=== PATIENT | male | born 1930 | race Caucasian/White ===

== ENCOUNTER 2016-12-26 10:36 | Emergency (ER) | payer MEDICARE ==
[~2016-12-26] VITALS: Ht 177.8 cm; Wt 100.0 kg
[~2016-12-26 10:36] MED LIST: AMLO5TAB96 PO; CLIN1CAP6 PO; COUM3TAB PO; NITR.4 SL; PREV15CA20 PO
[2016-12-26 10:37] VITALS: BP 135/63; PULSE 70; RESP 16; TEMP 97.5; O2SAT 99
[2016-12-26] MEDS ORDERED: MULTTAB67 PO (10:54)
[2016-12-26] MEDS ORDERED: SIMV20TA PO (10:54)
[2016-12-26] MEDS ORDERED: ACETAMINOPHEN/HYDROcodone 325 MG/5 MG TAB PO ONE (11:15)
[2016-12-26 11:45] LABS: AUTOMATED NEUTROPHIL # 0.5 TH/MM3 (1.8-7.7); BASOPHIL % 0.6 % (0.0-2.0); EOSINOPHIL % 2.3 % (0.0-4.0); HEMATOCRIT 27.4 % (39.0-51.0); LYMPH % 45.1 % (9.0-44.0); LYMPHOCYTE # 0.5 TH/MM3 (1.0-4.8); MEAN CORPUSCULAR HEMOGLOBIN 35.9 PG (27.0-34.0); MEAN CORPUSCULAR HGB CONC 33.9 % (32.0-36.0); MONO % 1.6 % (0.0-8.0); NEUT % 50.4 % (16.0-70.0); PLATELET COUNT 29 TH/MM3 (150-450); RED BLOOD COUNT 2.58 MIL/MM3 (4.50-5.90); RED CELL DISTRIBUTION WIDTH 20.1 % (11.6-17.2)
[2016-12-26 11:48] LABS: HEMO FLAGS AUTO DIFF
[2016-12-26 12:00] VITALS: BP 129/58; PULSE 68; RESP 16; O2SAT 98
[2016-12-26 12:00] LABS: ALT (GPT) 16 U/L (12-78); ANION GAP 6 MEQ/L (5-15); AST (GOT) 11 U/L (15-37); BICARBONATE 27.4 MEQ/L (21.0-32.0); BLOOD UREA NITROGEN 13 MG/DL (7-18); CHLORIDE 110 MEQ/L (98-107); GLOMERULAR FILTRATION RATE 58 ML/MIN (>89); POTASSIUM 4.4 MEQ/L (3.5-5.1); SODIUM (NA) 143 MEQ/L (136-145)
[2016-12-26 12:03] LABS: ALKALINE PHOSPHATASE 63 U/L (45-117); TOTAL BILIRUBIN ADULT 0.7 MG/DL (0.2-1.0)
[2016-12-26 12:25] LABS: BANDS 7 % (0-6); CORRECTED NUCLEATED RBC 1 /100 WBC (0-0); EOSINOPHILS 3 % (0-4); NEUTROPHIL # MANUAL DIFF 0.4 TH/MM3 (1.8-7.7); POLYS (SEG NEUTROPHILS) 37 % (16-70); TOXIC GRANULATION 2+ (NORMAL); WBC DIFF SAMPLE 100
[2016-12-26 12:26] LABS: OVALOCYTES 1+ (NORMAL); TEARDROP RBCS 1+ (NORMAL)
[2016-12-26 12:27] LABS: PLATELET ESTIMATE SMEAR LOW (NORMAL); PLATELET MORPHOLOGY ENLARGED (NORMAL)
[2016-12-26 12:28] LABS: ACANTHOCYTES OCC (NORMAL); SCAN/DIFF FINAL DIFF MANUAL
--- NOTE | 2016-12-26 12:44 | RADRPT ---
EXAM DATE/TIME: 12/26/2016 12:07 [facility] COMPARISON: No previous studies available for comparison. INDICATIONS : Back pain since falling several days ago. MEDICAL HISTORY : Hypertension. Bone cancer. Osteoporosis. Pulmonary embolism. SURGICAL HISTORY : Cervical fusion. ENCOUNTER: Initial ACUITY: 2 days PAIN SCORE: 5/10 LOCATION: Thoracic. FINDINGS: There is normal alignment of the thoracic vertebral bodies. Vertebral body height is maintained. No evidence of fracture or subluxation. Pedicles are intact at all levels. The paravertebral reflecti ons are not thickened. CONCLUSION: 1. No evidence for significant vertebral body compression fracture. Consider MRI examination to evalu ate for acute fracture without compression deformity particularly if patient has significant focal te nderness on palpation of a spinous process. Hans Tripathi MD on December 26, 2016 at 12:40 Board Certified Radiologist. This report was verified electronically.
--- NOTE | 2016-12-26 12:47 | RADRPT ---
EXAM DATE/TIME: 12/26/2016 12:08 [facility] COMPARISON: SPINE THORACIC AP/LAT/SW (3VW), December 26, 2016, 12:07. INDICATIONS : Lower back pain since falling 2 nights ago. MEDICAL HISTORY : Hypertension. Bone cancer. Osteoporosis. Pulmonary embolism. SURGICAL HISTORY : Cervical fusion. ENCOUNTER: Initial ACUITY: 2 days PAIN SCORE: 5/10 LOCATION: Lumbar. FINDINGS: Two view examination was performed. There are five non-rib bearing vertebral bodies. Sagittal alignm ent is maintained. There is slight dextroscoliosis of the thoracolumbar junction. Vertebral body heig hts are maintained. The disc spaces are maintained. The pedicles are intact. Bony mineralization is normal. No fracture is identified. CONCLUSION: 1. No significant vertebral compression fracture. Consider MRI examination to evaluate for acute frac ture without significant compression deformity if patient has significant pain on palpation of a spin ous process. Hans Tripathi MD on December 26, 2016 at 12:42 Board Certified Radiologist. This report was verified electronically.
--- NOTE | 2016-12-26 13:12 | PD ---
HPI Chief Complaint: Back/ Neck Pain or Injury Time Seen by Provider: 11:15 Travel History International Travel<30 days: No Contact w/Intl Traveler<30days: No Traveled to known affect area: No History of Present Illness HPI 86-year-old male patient with history of previous sarcoma, prostate cancer, leukemia for which he has most recently been following up with Dr. Lucas, presents to the ER today brought in by his because he has been having worsening pain over the last few days in the lower back area. He has not had any weakness, incontinence, fevers, or any other symptoms. Pain appears to be generalized lower back area. They have not had a chance to talk to Dr. Lucas about was going on. They are here because they just wants some medications for pain which patient does not have at home. 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) Radiation Therapy: Yes Sickle Cell Disease: No Past Surgical History Abdominal Surgery: Yes (polyp removal) AICD: No Arteriovenous Shunt: No Insulin Pump: No Joint Replacement: No Pacemaker: No Thoracic Surgery: Yes (CARDIAC CATH) Tonsillectomy: Yes Other Surgery: Yes (Cervical fusion x2) Social History Alcohol Use: Yes (rarely) Tobacco Use: No Substance Use: No Allergies-Medications (Allergen,Severity, Reaction): Coded Allergies: diclofenac (Unverified Allergy, Unknown, Rash, 12/26/16) Uncoded Allergies: TAPE (Allergy, Unknown, 01/25/04) Reported Meds & Prescriptions Reported Meds & Active Scripts Active Reported Multiple Vitamin 1 Tab 1 Tab PO DAILY Simvastatin Unknown Strength Tab Unknown Dose PO DAILY Review of Systems Except as stated in HPI: all other systems reviewed are Neg Physical Exam Narrative GENERAL: Well-developed elderly white male patient currently in moderate distress. Awake, oriented 3. SKIN: Focused skin assessment warm/dry. HEAD: Atraumatic. Normocephalic. EYES: Pupils equal and round. No scleral icterus. No injection or drainage. ENT: No nasal bleeding or discharge. Mucous membranes pink and moist. NECK: Trachea midline. No JVD. CARDIOVASCULAR: Regular rate and rhythm. No murmur appreciated. RESPIRATORY: No accessory muscle use. Clear to auscultation. Breath sounds equal bilaterally. GASTROINTESTINAL: Abdomen soft, non-tender, nondistended. Hepatic and splenic margins not palpable. MUSCULOSKELETAL: No obvious deformities. No clubbing. No cyanosis. No edema. NEUROLOGICAL: Awake and alert. No obvious cranial nerve deficits. Motor grossly within normal limits. Normal speech. PSYCHIATRIC: Appropriate mood and affect; insight and judgment normal. Data Data Last Documented VS Vital Signs Date Time Temp Pulse Resp B/P (MAP) Pulse Ox O2 Delivery O2 Flow Rate FiO2 12/26/16 10:37 97.5 70 16 135/63 (87) 99 Room Air Orders Orders Complete Blood Count With Diff (12/26/16 11:15) Comprehensive Metabolic Panel (12/26/16 11:15) Urinalysis - C+S If Indicated (12/26/16 11:15) Spine, Thoracic-Ap/Lat/Sw(3vw) (12/26/16 11:15) Spine, Lumbar - Ltd (Ap & Lat) (12/26/16 11:15) Acetamin-Hydrocod 325-5 Mg ([place] 5-325 (12/26/16 11:15) Labs Laboratory Tests Test 12/26/16 10:57 12/26/16 13:30 White Blood Count 1.0 TH/MM3 Red Blood Count 2.58 MIL/MM3 Hemoglobin 9.3 GM/DL Hematocrit 27.4 % Mean Corpuscular Volume 106.0 FL Mean Corpuscular Hemoglobin 35.9 PG Mean Corpuscular Hemoglobin Concent 33.9 % Red Cell Distribution Width 20.1 % Platelet Count 29 TH/MM3 Mean Platelet Volume 9.4 FL Neutrophils (%) (Auto) 50.4 % Lymphocytes (%) (Auto) 45.1 % Monocytes (%) (Auto) 1.6 % Eosinophils (%) (Auto) 2.3 % Basophils (%) (Auto) 0.6 % Neutrophils # (Auto) 0.5 TH/MM3 Lymphocytes # (Auto) 0.5 TH/MM3 Monocytes # (Auto) 0.0 TH/MM3 Eosinophils # (Auto) 0.0 TH/MM3 Basophils # (Auto) 0.0 TH/MM3 CBC Comment AUTO DIFF Differential Total Cells Counted 100 Neutrophils % (Manual) 37 % Band Neutrophils % 7 % Lymphocytes % 51 % Monocytes % 2 % Eosinophils % 3 % Neutrophils # (Manual) 0.4 TH/MM3 Nucleated Red Blood Cells 1 /100 WBC Differential Comment FINAL DIFF MANUAL Toxic Granulation 2+ Platelet Estimate LOW Platelet Morphology Comment ENLARGED Tear Drop Cells 1+ Ovalocytes 1+ Acanthocytes OCC Blood Urea Nitrogen 13 MG/DL Creatinine 1.20 MG/DL Random Glucose 87 MG/DL Total Protein 7.2 GM/DL Albumin 3.5 GM/DL Calcium Level 8.6 MG/DL Alkaline Phosphatase 63 U/L Aspartate Amino Transf (AST/SGOT) 11 U/L Alanine Aminotransferase (ALT/SGPT) 16 U/L Total Bilirubin 0.7 MG/DL Sodium Level 143 MEQ/L Potassium Level 4.4 MEQ/L Chloride Level 110 MEQ/L Carbon Dioxide Level 27.4 MEQ/L Anion Gap 6 MEQ/L Estimat Glomerular Filtration Rate 58 ML/MIN Urine Color YELLOW Urine Turbidity CLEAR Urine pH 5.5 Urine Specific Squire 1.025 Urine Protein TRACE mg/dL Urine Glucose (UA) NEG mg/dL Urine Ketones NEG mg/dL Urine Occult Blood NEG Urine Nitrite NEG Urine Bilirubin NEG Urine Urobilinogen LESS THAN 2.0 MG/DL Urine Leukocyte Esterase NEG Urine RBC 1 /hpf Urine WBC 1 /hpf Urine Mucus FEW /lpf Microscopic Urinalysis Comment CULT NOT INDICATED MDM Medical Decision Making Medical Screen Exam Complete: Yes Emergency Medical Condition: Yes Medical Record Reviewed: Yes Interpretation(s) Laboratory Tests Test 12/26/16 10:57 12/26/16 13:30 White Blood Count 1.0 TH/MM3 (4.0-11.0) Red Blood Count 2.58 MIL/MM3 (4.50-5.90) Hemoglobin 9.3 GM/DL (13.0-17.0) Hematocrit 27.4 % (39.0-51.0) Mean Corpuscular Volume 106.0 FL (80.0-100.0) Mean Corpuscular Hemoglobin 35.9 PG (27.0-34.0) Red Cell Distribution Width 20.1 % (11.6-17.2) Platelet Count 29 TH/MM3 (150-450) Lymphocytes (%) (Auto) 45.1 % (9.0-44.0) Neutrophils # (Auto) 0.5 TH/MM3 (1.8-7.7) Lymphocytes # (Auto) 0.5 TH/MM3 (1.0-4.8) Band Neutrophils % 7 % (0-6) Lymphocytes % 51 % (9-44) Neutrophils # (Manual) 0.4 TH/MM3 (1.8-7.7) Nucleated Red Blood Cells 1 /100 WBC (0-0) Toxic Granulation 2+ (NORMAL) Platelet Estimate LOW (NORMAL) Platelet Morphology Comment ENLARGED (NORMAL) Tear Drop Cells 1+ (NORMAL) Ovalocytes 1+ (NORMAL) Aspartate Amino Transf (AST/SGOT) 11 U/L (15-37) Chloride Level 110 MEQ/L (98-107) Estimat Glomerular Filtration Rate 58 ML/MIN (>89) Urine Mucus FEW /lpf (OCC) Last 24 hours Impressions Thoracic Spine X-Ray 12/26/16 1115 Signed Impressions: Service Date/Time: Saturday, December 26, 2016 12:07 - CONCLUSION: 1. No evidence for significant vertebral body compression fracture. Consider MRI examination to evaluate for acute fracture without compression deformity particularly if patient has significant focal tenderness on palpation of a spinous process. Hans Tripathi MD Lumbar Spine X-Ray 12/26/16 1115 Signed Impressions: Service Date/Time: Saturday, December 26, 2016 12:08 - CONCLUSION: 1. No significant vertebral compression fracture. Consider MRI examination to evaluate for acute fracture without significant compression deformity if patient has significant pain on palpation of a spinous process. Hans Tripathi MD Differential Diagnosis Chronic pain versus fractures versus osteomyelitis versus CA related pain Narrative Course Lab work shows significant CBC abnormalities which appears to be chronic for this patient. Case was discussed with Dr. Lucas who states that he would manage him conservatively with pain medications. X-rays did not show any signs of acute processes. Patient has no focal neurological deficits, incontinence, or other neurological symptoms. At this point, my plan would be to release him with follow-up to oncology. Return for any worsening in pain or new symptoms as needed. The plan was discussed with the patient and he states understanding. Diagnosis Primary Impression: Low back pain Med/Other Pt SpecificInfo: Prescription(s) given Scripts Tramadol (Tramadol) 50 Mg Tab 50 MG PO Q6H Y for PAIN, #15 TAB 0 Refills Prov: Jeffy Cuellar MD 12/26/16 Disposition: 01 DISCHARGE HOME Condition: Stable Jeffy Cuellar MD Dec 26, 2016 13:11
[2016-12-26 14:00] VITALS: BP 115/57; PULSE 60; RESP 18; O2SAT 95
[2016-12-26 14:11] LABS: BLOOD, URINE NEG (NEG); COMMENT (UR) CULT NOT INDICATED; CULTURE IF INDICATED CULT NOT INDICATED; GLUCOSE,URINE NEG (NEG); KETONE, URINE NEG (NEG); MUCUS URINE FEW /lpf (OCC); NITRITE,URINE NEG (NEG); PH, URINE 5.5 (5.0-8.5); URINE COLOR YELLOW (YELLW/STRAW)
[2016-12-26] MEDS ORDERED: TRAM50TA PO (14:44)
== END 2016-12-26 15:00 | disposition home or self-care (01) ==
LOC: NEPE 10:36
DX: M54.5 Low back pain (principal); K21.9 Gastro-esophageal reflux disease without esophagitis; I10 Essential (primary) hypertension; Z85.46 Personal history of malignant neoplasm of prostate; Z85.6 Personal history of leukemia; Z86.711 Personal history of pulmonary embolism; Z79.01 Long term (current) use of anticoagulants; Z79.899 Other long term (current) drug therapy
CPT/HCPCS: 72072; 72100; 80053; 81001; 85007; 85027; 99283

== ENCOUNTER 2016-12-29 18:55 | Emergency (ER) | payer MEDICARE ==
[~2016-12-29 18:55] MED LIST changes: -AMLO5TAB96 PO; -CLIN1CAP6 PO; -COUM3TAB PO; +MULTTAB67 PO; -NITR.4 SL; -PREV15CA20 PO; +SIMV20TA PO; +TRAM50TA PO
[2016-12-29] MEDS ORDERED: GADODIAMIDE PF 287 MG/ML 20 ML VIAL (for RAD MRI) IVCONTRAST ONE (18:56)
--- NOTE | 2016-12-29 19:41 | PD ---
HPI Chief Complaint: Back/ Neck Pain or Injury Time Seen by Provider: 19:22 Travel History International Travel<30 days: No Contact w/Intl Traveler<30days: No Traveled to known affect area: No History of Present Illness HPI This is an 86-year-old male who has a history of leukemia per his who presents to the emergency department having had a fall. He fell on top of his at home. She was trying to get him ready for a bath and she slipped and he fell on top of her. He has been reporting low back pain for some time but he reports it's worse after the fall, constant, moderate severity making it difficult for him to walk. He denies any weakness or numbness. He says he didn 't hit his head today but he says he has fallen several times over the past weekend he has hit his head. His reports that currently she is trying to make the decision of whether to continue to follow-up with hematology or whether to consider hospice care for her . 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) Radiation Therapy: Yes Sickle Cell Disease: No Past Surgical History Abdominal Surgery: Yes (polyp removal) AICD: No Arteriovenous Shunt: No Insulin Pump: No Joint Replacement: No Pacemaker: No Thoracic Surgery: Yes (CARDIAC CATH) Tonsillectomy: Yes Other Surgery: Yes (Cervical fusion x2) Social History Alcohol Use: Yes (rarely) Tobacco Use: No Substance Use: No Allergies-Medications (Allergen,Severity, Reaction): Coded Allergies: diclofenac (Unverified Allergy, Unknown, Rash, 12/26/16) Uncoded Allergies: TAPE (Allergy, Unknown, 01/25/04) Reported Meds & Prescriptions Reported Meds & Active Scripts Active Tramadol (Tramadol HCl) 50 Mg Tab 50 Mg PO Q6H PRN Reported Simvastatin 20 Mg Tab 20 Mg PO DAILY Multiple Vitamin 1 Tab 1 Tab PO DAILY Review of Systems ROS Limitations: Other: (early dementia) Physical Exam Narrative GENERAL:Well appearing, no acute distress SKIN: Old-appearing ecchymoses on the right cheek, some petechiae in the bilateral upper extremities, scratches on the back HEAD: Atraumatic. Normocephalic. EYES: Pupils equal and round. No injection or drainage. ENT: Moist mucous membranes NECK: Trachea midline. CARDIOVASCULAR: Regular rate and rhythm. No murmur appreciated. RESPIRATORY: Clear to auscultation. Breath sounds equal bilaterally. GASTROINTESTINAL: Abdomen soft, non-tender, nondistended. MUSCULOSKELETAL: Tender to palpation along the lower lumbar spinous processes. NEUROLOGICAL: Awake and alert. Somewhat confused. No obvious cranial nerve deficits. Moving all extremities. Data Data Orders Orders Ct Brain W/O Iv Contrast(Rout) (12/29/16 ) Mri L Spine W&W/O Contrast (12/29/16 ) [facility] Medical Decision Making Medical Screen Exam Complete: Yes Emergency Medical Condition: Yes Medical Record Reviewed: Yes (pt was seen in the emergency department 3 days ago with back pain, xray was obtained which was reassuring.) Interpretation(s) ct head: no intracranial hemorrhage mri lumbar spine: contusion T12 Differential Diagnosis Metastatic disease, lumbar compression fracture, herniated disc, contusion Narrative Course This is an 86-year-old male who presents to the emergency department having had a fall. He has a history of leukemia. His says that there in discussion with her electromechanical assembler to consider hospice care. He's been complaining of low back pain prior to the fall but it got worse since the fall. I did an MRI of the lumbar spine which demonstrates a contusion at T12 but no acute fracture. I had a long conversation with his . I offered her home health care because of concern that they're both falling. She declined at this time. She has an appointment with Dr. Lucas 3 days from now at which point they will discuss whether hospice care is appropriate. Patient will be discharged home. Diagnosis Primary Impression: Contusion of back wall of thorax Qualified Codes: S20.229A - Contusion of unspecified back wall of thorax, initial encounter Patient Instructions: General Instructions Additional Instructions: If you develop weakness of your legs, difficulty walking, numbness of your legs or your genital or rectal area, loss of your bowel or bladder, or difficulty urinating return to the emergency department immediately. Followup with your primary care physician in one week if your symptoms have not improved. Med/Other Pt SpecificInfo: No Change to Meds Disposition: 01 DISCHARGE HOME Condition: Stable Ashli Uribe MD Dec 29, 2016 19:41
[2016-12-29] MEDS ORDERED: SIMV20TA PO (20:01)
--- NOTE | 2016-12-29 20:56 | RADRPT ---
EXAM DATE/TIME: 12/29/2016 19:59 [facility] COMPARISON: SPINE LUMBAR LTD (AP & LAT), December 26, 2016, 12:08. INDICATIONS : Trauma. Pain after fall. CONTRAST: 20 cc Omniscan (gadodiamide) IV MEDICAL HISTORY : Leukemia. Carcinoma, prostate. Carcinoma, bone. Sarcoma. Pulmonary embolism. SURGICAL HISTORY : Fusion, cervical. Tonsillectomy. ENCOUNTER: Subsequent ACUITY: 4-6 days PAIN SCORE: 8/10 LOCATION: Paraspinal TECHNIQUE: Multiplanar multisequence MRI of the lumbar spine was performed with and without contrast. FINDINGS: The most caudal appearing lumbar vertebra is numbered as L5. There is preservation of height and ali gnment of lumbar vertebral bodies. There is focal signal abnormality in the anterior superior endpla te of the T12 vertebral body characterized by decreased signal on T1, mildly T2 prolongation, and mod erate intensity contrast enhancement. The findings suggest bony contusion or subradiographic fractur e. No signal abnormality seen within the remainder of the lumbar vertebral bodies. There is a termi nal meningocele in the thecal sac at the S2 level. The conus is at the level of T12-L1. No abnormal areas of enhancement within the thecal sac. Paraspinal soft tissues are grossly intact. T12-L1: The thecal sac has a normal diameter. No evidence of disc bulge or protrusion. The neural foramina are patent bilaterally. L1-L2: The thecal sac has a normal diameter. No evidence of disc bulge or protrusion. The neural foramina are patent bilaterally. L2-L3: The thecal sac has a normal diameter. No evidence of disc bulge or protrusion. The neural foramina are patent bilaterally. L3-L4: The thecal sac has a normal diameter. No evidence of disc bulge or protrusion. The neural foramina are patent bilaterally. L4-L5: Broad-based bulging of the disc flattens the ventral margin of the thecal sac and extends into the ne ural foramen on both sides. No evidence of neural impingement. L5-S1: Mild central bulging of the disc is contained within the epidural fat. No deformity of the thecal sa c. The neuroforamina are patent bilaterally. CONCLUSION: Signal abnormality in the anterior superior endplate of T12 with prominent enhancement on the postcon trast images without significant loss of height of vertebral body. This suggests possible bony contu erin or subradiographic fracture. Orlin Rushing MD on December 29, 2016 at 20:50 Board Certified Radiologist. This report was verified electronically.
--- NOTE | 2016-12-29 21:11 | RADRPT ---
EXAM DATE/TIME: 12/29/2016 20:31 [facility] COMPARISON: CT BRAIN W/O CONTRAST, June 16, 2014, 22:04. INDICATIONS : Trauma, trip and fall. RADIATION DOSE: 36.28 CTDIvol (mGy) MEDICAL HISTORY : Cardiovascular disease. Hypertension. Pulmonary embolism. Prostate cancer. Bone cancer. Pulmonary emb olism. SURGICAL HISTORY : Cervical fusion. ENCOUNTER: Initial ACUITY: 1 day PAIN SCALE: 1/10 LOCATION: cranial TECHNIQUE: Multiple contiguous axial images were obtained of the head. Using automated exposure control and adj ustment of the mA and/or kV according to patient size, radiation dose was kept as low as reasonably a chievable to obtain optimal diagnostic quality images. DICOM format image data is available electro nically for review and comparison. FINDINGS: CEREBRUM: Moderate severity atrophy with prominence of the ventricles, sulci, and basal cisterns. There is als o lacunar infarct in the inferior left striatum. These findings are unchanged from prior CT in 2014. No evidence of acute blood products, mass effect, or acute infarction. No extra-axial fluid or blo od. POSTERIOR FOSSA: The cerebellum and brainstem are intact. The 4th ventricle is midline. The cerebellopontine angle i s unremarkable. EXTRACRANIAL: The visualized portion of the orbits is intact. SKULL: The calvaria is intact. No evidence of skull fracture. CONCLUSION: No acute findings. Stable severity ischemic atrophy. Orlin Rushing MD on December 29, 2016 at 21:08 Board Certified Radiologist. This report was verified electronically.
[2016-12-29 22:23] VITALS: BP 125/58
== END 2016-12-29 23:00 | disposition home or self-care (01) ==
LOC: NEPE 18:55
DX: S20.229A Contusion of unspecified back wall of thorax, initial encounter (principal); S00.83XA Contusion of other part of head, initial encounter; C95.90 Leukemia, unspecified not having achieved remission; K21.9 Gastro-esophageal reflux disease without esophagitis; I10 Essential (primary) hypertension; W01.0XXA Fall on same level from slipping, tripping and stumbling without subsequent striking against object, initial encounter; Z91.81 History of falling; Z86.711 Personal history of pulmonary embolism; Z79.01 Long term (current) use of anticoagulants
CPT/HCPCS: 70450; 72158; 99285; A9579